=== PATIENT | female | born 2000 | race Caucasian/White ===

== ENCOUNTER → 2021-01-28 | Outpatient (CLI) | payer OTHER | LOC: KOH-I 12:31 | DX: R05.9 Cough, unspecified (principal); R91.8 Other nonspecific abnormal finding of lung field | CPT/HCPCS: 71046 ==

== ENCOUNTER → 2021-11-21 | Outpatient (CLI) | payer OTHER | LOC: KOH-I 09:52 | DX: M25.562 Pain in left knee (principal) | CPT/HCPCS: 73560 ==